=== PATIENT | female | born 1945 | race American Indian/Alaskan Native ===

== ENCOUNTER 2019-04-17 19:07 | Inpatient (IN) | payer MEDICARE ==
[2019-04-17] MEDS ORDERED: SODIUM CHLORIDE 0.9% 1000 ML 1,000 ML IV ONE (21:11)
[2019-04-17] MEDS ORDERED: ONDANSETRON 4 MG/2 ML INJ IV ONE (21:13)
--- NOTE | 2019-04-17 21:16 | Emergency Department Report ---
ED General Adult HPI - General Chief complaint: Altered Mental Status Stated complaint: FAILURE TO THRIVE Time Seen by Provider: 04/17/19 21:03 Source: family, EMS Mode of arrival: Stretcher Limitations: Other - History of Present Illness Initial comments: Patient is 73 years old female, hospice patient, DO NOT RESUSCITATE. Patient has advanced dementia. Patient is living in a personal long-term. Patient brought to the emergency room via EMS accompanied by her family. Family stated that patient has not been eating or drinking for the last few days with decreased mental status. Patient found to have a low-grade temperature and is slightly tachycardic. Patient is not communicating, most of the history is from patient family. - Related Data Allergies Allergy/AdvReac Type Severity Reaction Status Date / Time No Known Allergies Allergy Unverified 04/17/19 20:39 ED Review of Systems ROS: Stated complaint: FAILURE TO THRIVE Other details as noted in HPI Comment: Unobtainable due to pts medical conditions ED Past Medical Hx - Past Medical History Previous Medical History?: Yes Hx CVA: Yes Hx of Cancer: Yes (Breast Left) Hx Seizures: Yes Hx Dementia: Yes - Surgical History Past Surgical History?: Yes Additional Surgical History: Left masectomy, Brain stem surgery 2016 ED Physical Exam - General Limitations: Other General appearance: obtunded - Head Head exam: Present: atraumatic - Eye Eye exam: Present: normal appearance - ENT ENT exam: Present: mucous membranes dry - Neck Neck exam: Present: normal inspection. Absent: tenderness, meningismus - Respiratory Respiratory exam: Present: normal lung sounds bilaterally - Cardiovascular Cardiovascular Exam: Present: tachycardia - GI/Abdominal GI/Abdominal exam: Present: soft, normal bowel sounds. Absent: distended, tenderness, guarding, rebound, rigid - Neurological Exam Neurological exam: Present: altered - Skin Skin exam: Present: warm, dry ED Course Vital Signs 04/17/19 04/17/19 04/17/19 19:41 20:46 20:48 Temperature 99.1 F 100.9 F H Pulse Rate 110 H Respiratory 13 18 Rate Blood Pressure 114/66 [Right] O2 Sat by Pulse 99 100 Oximetry ED Medical Decision Making - Lab Data Result diagrams: 04/17/19 21:21 04/17/19 21:21 - Radiology Data Radiology results: report reviewed - Medical Decision Making Patient is 73 years old female, hospice patient, DO NOT RESUSCITATE. Patient has advanced dementia. Patient is living in a personal long-term. Patient brought to the emergency room via EMS accompanied by her family. Family stated that patient has not been eating or drinking for the last few days with decreased mental status. Patient found to have a low-grade temperature and is slightly tachycardic. Patient is not communicating, most of the history is from patient family. Labs reviewed and showed elevated lactic acid, UTI. Chest x-ray is unremarkable. Patient treated with normal saline, Zofran and Zosyn. I discussed the patient with Dr. Kaye Mcbride, she agreed to admit the patient to medical service for further management. Critical care attestation.: If time is entered above; I have spent that time in minutes in the direct care of this critically ill patient, excluding procedure time. ED Disposition Clinical Impression: Altered mental status, Dehydration, UTI (urinary tract infection) Disposition: OP ADMIT IP TO THIS HOSP Is pt being admited?: Yes Condition: Stable
--- NOTE | 2019-04-17 21:33 | XRay Report ---
CHEST 1 VIEW INDICATION: Altered Mental Status COMPARISON: None FINDINGS: Support devices: None Heart: Normal Lungs/Pleura: No acute pulmonary or pleural findings. IMPRESSION: 1. No acute disease. Signer Name: Facundo Hernandez MD Signed: 04/17/2019 9:28 PM Workstation Name: [id number]
[2019-04-17 21:45] LABS: Basophils % (Auto) 0.2 % (0.0-1.8); Hematocrit 42.3 % (30.3-42.9); Hemoglobin 13.3 gm/dl (10.1-14.3); Lymphocytes # (Auto) 1.2 K/mm3 (1.2-5.4); Mean Corpuscular HGB Conc 32 % (30-34); Mean Corpuscular Volume 91 fl (79-97); Monocytes # (Auto) 0.3 K/mm3 (0.0-0.8); Monocytes % (Auto) 4.1 % (0.0-7.3); Platelet Count 152 K/mm3 (140-440); Red Blood Count 4.66 M/mm3 (3.65-5.03); Red Cell Distribution Width 15.7 % (13.2-15.2)
[2019-04-17 22:07] LABS: Albumin 3.7 g/dL (3.9-5); BUN/Creatinine Ratio 26; Blood Urea Nitrogen 23 mg/dL (7-17); Calcium 9.4 mg/dL (8.4-10.2); Hemolysis Index 228
[2019-04-17 22:12] LABS: Bilirubin,Direct < 0.2 mg/dL (0-0.2)
[2019-04-17 22:16] LABS: Alanine Aminotransferase 47 units/L (7-56)
[2019-04-18 00:18] LABS: Bacteria,Urine 1+ /HPF (Negative); Bilirubin,Urine NEG (Negative); Blood,Urine SM (Negative); Color,Urine Yellow (Yellow); Mucus,Urine 1+ /HPF; Urobilinogen,Urine < 2.0 mg/dL (<2.0)
[2019-04-18] MEDS ORDERED: PIPERACILLIN/TAZOBACTAM 3.375 3.375 GM/50 ML BAG IV ONE (00:29)
[2019-04-18] MEDS ORDERED: ONDANSETRON 4 MG/2 ML INJ IV PRN (00:50)
[2019-04-18] MEDS ORDERED: DEXTROSE 50% IN WATER (25GM) 50 ML SYRINGE IV PRN (00:50)
[2019-04-18] MEDS ORDERED: ACETAMINOPHEN 325 MG TAB PO PRN (00:50)
--- NOTE | 2019-04-18 02:32 | History and Physical Report ---
<BRONWYN STRATTON - Last Filed: 04/18/19 02:27> History of Present Illness Date of examination: 04/18/19 Date of admission: 04/18/2019 Chief complaint: AMS, poor oral intake History of present illness: 73-year-old -A[place]ij[place] female who is on hospice currently residing at personal care with history of hypertension, diabetes, left breast cancer status post left mastectomy, seizure, dementia, and brain surgery who presents to [facility] ED via EMS with complaints of altered mental status x3 days and poor oral intake for the past couple of weeks. At baseline pt has history of dementia. She is unable to contribute to history. Pt's family (sisters, niece, and grandson) are present at bedside and have asssited with providing history. According to family, pt's son has POA. Son is traveling out of country and the grandson is acting on his behalf. Family requested pt be transferred to ED after 3 days of altered mentation and 2-3 weeks of decreased oral intake. Per family pt's intake has worsened over the past 3 days. They can't recall pt eating or having anything to drink. Past History Past Medical History: cancer (breast (Left breast)), diabetes, hypertension, stroke (right sided residual weakness), other (dementia) Past Surgical History: Other (Left masectomy, Brain stem surgery 2016) Social history: other (lives in personal fci and on hospice) Family history: no significant family history Medications and Allergies Allergies Allergy/AdvReac Type Severity Reaction Status Date / Time No Known Allergies Allergy Unverified 04/17/19 20:39 Active Meds: Active Medications Acetaminophen (Tylenol) 650 mg PO Q4H PRN PRN Reason: Pain MILD(1-3)/Fever >100.5/WHITLEY Acetaminophen (Tylenol) 650 mg PA Q4H PRN PRN Reason: Pain, Mild (1-3), fever>100.5 Dextrose (D50w (25gm) Syringe) 0 ml IV Q30MIN PRN; Protocol PRN Reason: Hypoglycemia Docusate Sodium (Colace) 100 mg PO BID JAMAAL Heparin Sodium (Porcine) (Heparin) 5,000 unit SUB-Q Q12HR JAMAAL Sodium Chloride (Nacl 0.9% 1000 Ml) 1,000 mls @ 75 mls/hr IV DIRECT JAMAAL Ceftriaxone Sodium (Rocephin/Ns 1 Gm/50 Ml) 1 gm in 50 mls @ 100 mls/hr IV Q24HR JAMAAL; Protocol Insulin Human Regular (Humulin R) 0 units SUB-Q Q6HR JAMAAL; Protocol Lorazepam (Ativan) 1 mg IV Q6H PRN PRN Reason: Seizures Ondansetron HCl (Zofran) 4 mg IV Q8H PRN PRN Reason: Nausea And Vomiting Sodium Chloride (Sodium Chloride Flush Syringe 10 Ml) 10 ml IV BID JAMAAL Sodium Chloride (Sodium Chloride Flush Syringe 10 Ml) 10 ml IV PRN PRN PRN Reason: LINE FLUSH Review of Systems ROS unobtainable: due to mental status Exam - Physical Exam Narrative exam: General appearance: Present: No acute distress, awake, unable to assess orientation, chronically ill appearing, older adult female - EENT Eyes: Present: PERRL, EOM intact ENT: hearing intact, - Neck Neck: Present: supple, normal ROM - Respiratory Respiratory effort: Non-labored Respiratory: bilateral: Diminished bases bilaterally - Cardiovascular Heart rate:98 (bpm) Rhythm:SR Heart Sounds: Present: S1, S2. - Extremities Extremities: no ischemia, pulses intact, IO left lowe leg - Peripheral Assessment Peripheral Pulses: within normal limits - Abdominal General gastrointestinal: soft, non-tender, normal bowel sounds, - Integumentary Integumentary: Present: warm, dry - Musculoskeletal Musculoskeletal: generalized weakness, right residual deficits from previous cva -Neurological Neurological: awake, unable to complete full neuro exam - Psychiatric Psychiatric: unable to assess - Constitutional Vitals: Temp Pulse Resp BP Pulse Ox 100.9 F H 110 H 18 114/66 100 04/17/19 20:46 04/17/19 19:41 04/17/19 20:48 04/17/19 19:41 04/17/19 20:48 Results - Labs CBC & Chem 7: 04/17/19 21:21 04/17/19 21:21 Labs: Laboratory Last Values WBC 7.6 K/mm3 (4.5-11.0) 04/17/19 21:21 RBC 4.66 M/mm3 (3.65-5.03) 04/17/19 21:21 Hgb 13.3 gm/dl (10.1-14.3) 04/17/19 21:21 Hct 42.3 % (30.3-42.9) 04/17/19 21:21 MCV 91 fl (79-97) 04/17/19 21:21 MCH 29 pg (28-32) 04/17/19 21:21 MCHC 32 % (30-34) 04/17/19 21:21 RDW 15.7 % (13.2-15.2) H 04/17/19 21:21 Plt Count 152 K/mm3 (140-440) 04/17/19 21:21 Lymph % (Auto) 16.0 % (13.4-35.0) 04/17/19 21:21 [place] % (Auto) 4.1 % (0.0-7.3) 04/17/19 21:21 Eos % (Auto) 0.0 % (0.0-4.3) 04/17/19 21:21 Baso % (Auto) 0.2 % (0.0-1.8) 04/17/19 21:21 Lymph # 1.2 K/mm3 (1.2-5.4) 04/17/19 21:21 [place] # 0.3 K/mm3 (0.0-0.8) 04/17/19 21:21 Eos # 0.0 K/mm3 (0.0-0.4) 04/17/19 21:21 Baso # 0.0 K/mm3 (0.0-0.1) 04/17/19 21:21 Seg Neutrophils % 79.7 % (40.0-70.0) H 04/17/19 21:21 Seg Neutrophils # 6.0 K/mm3 (1.8-7.7) 04/17/19 21:21 Sodium 143 mmol/L (137-145) 04/17/19 21:21 Potassium 5.2 mmol/L (3.6-5.0) H 04/17/19 21:21 Chloride 101.2 mmol/L (98-107) 04/17/19 21:21 Carbon Dioxide 20 mmol/L (22-30) L 04/17/19 21:21 Anion Gap 27 mmol/L 04/17/19 21:21 BUN 23 mg/dL (7-17) H 04/17/19 21:21 Creatinine 0.9 mg/dL (0.7-1.2) 04/17/19 21:21 Estimated GFR > 60 ml/min 04/17/19 21:21 BUN/Creatinine Ratio 26 % 04/17/19 21:21 Glucose 277 mg/dL (65-100) H 04/17/19 21:21 Hemoglobin A1c 7.0 % (4-6) H 04/18/19 01:05 Lactic Acid 3.40 mmol/L (0.7-2.0) H* 04/18/19 00:16 Calcium 9.4 mg/dL (8.4-10.2) 04/17/19 21:21 Total Bilirubin 0.40 mg/dL (0.1-1.2) 04/17/19 21:21 Direct Bilirubin < 0.2 mg/dL (0-0.2) 04/17/19 21:21 Indirect Bilirubin 0.2 mg/dL 04/17/19 21:21 AST 36 units/L (5-40) 04/17/19 21:21 ALT 47 units/L (7-56) 04/17/19 21:21 Alkaline Phosphatase 81 units/L (35-129) 04/17/19 21:21 Total Protein 7.8 g/dL (6.3-8.2) 04/17/19 21:21 Albumin 3.7 g/dL (3.9-5) L 04/17/19 21:21 Albumin/Globulin Ratio 0.9 % 04/17/19 21:21 Urine Color Yellow (Yellow) 04/17/19 23:07 Urine Turbidity Cloudy (Clear) 04/17/19 23:07 Urine pH 5.0 (5.0-7.0) 04/17/19 23:07 Ur Specific [place] 1.020 (1.003-1.030) 04/17/19 23:07 Urine Protein 30 mg/dl mg/dL (Negative) 04/17/19 23:07 Urine Glucose (UA) 150 mg/dL (Negative) 04/17/19 23:07 Urine Ketones 20 mg/dL (Negative) 04/17/19 23:07 Urine Blood Sm (Negative) 04/17/19 23:07 Urine Nitrite Neg (Negative) 04/17/19 23:07 Urine Bilirubin Neg (Negative) 04/17/19 23:07 Urine Urobilinogen < 2.0 mg/dL (<2.0) 04/17/19 23:07 Ur Leukocyte Esterase Lg (Negative) 04/17/19 23:07 Urine WBC (Auto) 67.0 /HPF (0.0-6.0) H 04/17/19 23:07 Urine RBC (Auto) 85.0 /HPF (0.0-6.0) 04/17/19 23:07 U Epithel Cells (Auto) 1.0 /HPF (0-13.0) 04/17/19 23:07 Urine Bacteria (Auto) 1+ /HPF (Negative) 04/17/19 23:07 Urine Mucus 1+ /HPF 04/17/19 23:07 Urine Yeast (Budding) 3+ /HPF 04/17/19 23:07 - Imaging and Cardiology Imaging and Cardiology: CXR: Impression: No acute disease. Assessment and Plan Assessment and plan: 73-year-old -A[place]ij[place] female who is on hospice currently residing at personal care with history of hypertension, diabetes, left breast cancer status post left mastectomy, seizure, dementia, and brain surgery who presents to [facility] ED via EMS with complaints of altered mental status x3 days and poor oral intake for the past couple of weeks. Family does not want pt to go back to current [facility] at discharge. A Case management consult has been placed for assistance with placement. There is some confusion as to pt's code status. Per family a document was signed during pervious admission at another facility. Both personal fci and Hospice was contacted regarding pt's code status, and they were unable to provide written documentation. Family has agreed that pt should remain full code until son who is POA returns and can make determination. Sepsis -HR >90 -AMS -Source of infection UTI -TMAX 100.9 -On IV Abx -Continue supportive Care UTI -Urine WBC 67, leukocyte -Urine culture pending -On IV Abx Acute Metabolic Encephalopathy -Likely due to UTI -Neuro checks -Continue to monitor Hyperkalemia -Potassium on admission 5.2 -Receiving IVF -Repeat potassium labs pending -Continue to monitor Lactic acidosis -Lactic acid on admission 3.2 -On IV Abx -On IVF -Continue to monitor DVT PPX -On Heparin Advance Directives: No VTE prophylaxis?: Chemical Plan of care discussed with patient/family: Yes <VERONN MORRIS - Last Filed: 04/18/19 05:50> History of Present Illness Date of admission: 04/18/19 00:50 Medications and Allergies Active Meds: Active Medications Acetaminophen (Tylenol) 650 mg PO Q4H PRN PRN Reason: Pain MILD(1-3)/Fever >100.5/WHITLEY Acetaminophen (Tylenol) 650 mg PA Q4H PRN PRN Reason: Pain, Mild (1-3), fever>100.5 Dextrose (D50w (25gm) Syringe) 0 ml IV Q30MIN PRN; Protocol PRN Reason: Hypoglycemia Docusate Sodium (Colace) 100 mg PO BID JAMAAL Heparin Sodium (Porcine) (Heparin) 5,000 unit SUB-Q Q12HR JAMAAL Sodium Chloride (Nacl 0.9% 1000 Ml) 1,000 mls @ 75 mls/hr IV DIRECT JAMAAL Ceftriaxone Sodium (Rocephin/Ns 1 Gm/50 Ml) 1 gm in 50 mls @ 100 mls/hr IV Q24HR JAMAAL; Protocol Insulin Human Regular (Humulin R) 0 units SUB-Q Q6HR JAMAAL; Protocol Last Admin: 04/18/19 03:58 Dose: 4 units Documented by: Lorazepam (Ativan) 1 mg IV Q6H PRN PRN Reason: Seizures Ondansetron HCl (Zofran) 4 mg IV Q8H PRN PRN Reason: Nausea And Vomiting Sodium Chloride (Sodium Chloride Flush Syringe 10 Ml) 10 ml IV BID [facility] Sodium Chloride (Sodium Chloride Flush Syringe 10 Ml) 10 ml IV PRN PRN PRN Reason: LINE FLUSH Exam - Constitutional Vitals: Temp Pulse Resp BP Pulse Ox 99.6 F 118 H 20 111/56 100 04/18/19 05:13 04/18/19 05:13 04/18/19 05:13 04/18/19 05:13 04/18/19 05:13 Results - Labs CBC & Chem 7: 04/17/19 21:21 04/17/19 21:21 Labs: Laboratory Last Values WBC 7.6 K/mm3 (4.5-11.0) 04/17/19 21:21 RBC 4.66 M/mm3 (3.65-5.03) 04/17/19 21:21 Hgb 13.3 gm/dl (10.1-14.3) 04/17/19 21:21 Hct 42.3 % (30.3-42.9) 04/17/19 21:21 MCV 91 fl (79-97) 04/17/19 21:21 MCH 29 pg (28-32) 04/17/19 21:21 MCHC 32 % (30-34) 04/17/19 21:21 RDW 15.7 % (13.2-15.2) H 04/17/19 21:21 Plt Count 152 K/mm3 (140-440) 04/17/19 21:21 Lymph % (Auto) 16.0 % (13.4-35.0) 04/17/19 21:21 Winston % (Auto) 4.1 % (0.0-7.3) 04/17/19 21:21 Eos % (Auto) 0.0 % (0.0-4.3) 04/17/19 21:21 Baso % (Auto) 0.2 % (0.0-1.8) 04/17/19 21:21 Lymph # 1.2 K/mm3 (1.2-5.4) 04/17/19 21:21 Winston # 0.3 K/mm3 (0.0-0.8) 04/17/19 21:21 Eos # 0.0 K/mm3 (0.0-0.4) 04/17/19 21:21 Baso # 0.0 K/mm3 (0.0-0.1) 04/17/19 21:21 Seg Neutrophils % 79.7 % (40.0-70.0) H 04/17/19 21:21 Seg Neutrophils # 6.0 K/mm3 (1.8-7.7) 04/17/19 21:21 Sodium 143 mmol/L (137-145) 04/17/19 21:21 Potassium 5.2 mmol/L (3.6-5.0) H 04/17/19 21:21 Chloride 101.2 mmol/L (98-107) 04/17/19 21:21 Carbon Dioxide 20 mmol/L (22-30) L 04/17/19 21:21 Anion Gap 27 mmol/L 04/17/19 21:21 BUN 23 mg/dL (7-17) H 04/17/19 21:21 Creatinine 0.9 mg/dL (0.7-1.2) 04/17/19 21:21 Estimated GFR > 60 ml/min 04/17/19 21:21 BUN/Creatinine Ratio 26 % 04/17/19 21:21 Glucose 277 mg/dL (65-100) H 04/17/19 21:21 POC Glucose 330 (70-105) H 04/18/19 03:44 Hemoglobin A1c 7.0 % (4-6) H 04/18/19 01:05 Lactic Acid 1.60 mmol/L (0.7-2.0) 04/18/19 03:24 Calcium 9.4 mg/dL (8.4-10.2) 04/17/19 21:21 Total Bilirubin 0.40 mg/dL (0.1-1.2) 04/17/19 21:21 Direct Bilirubin < 0.2 mg/dL (0-0.2) 04/17/19 21:21 Indirect Bilirubin 0.2 mg/dL 04/17/19 21:21 AST 36 units/L (5-40) 04/17/19 21:21 ALT 47 units/L (7-56) 04/17/19 21:21 Alkaline Phosphatase 81 units/L (35-129) 04/17/19 21:21 Total Protein 7.8 g/dL (6.3-8.2) 04/17/19 21:21 Albumin 3.7 g/dL (3.9-5) L 04/17/19 21:21 Albumin/Globulin Ratio 0.9 % 04/17/19 21:21 Urine Color Yellow (Yellow) 04/17/19 23:07 Urine Turbidity Cloudy (Clear) 04/17/19 23:07 Urine pH 5.0 (5.0-7.0) 04/17/19 23:07 Ur Specific Duarte 1.020 (1.003-1.030) 04/17/19 23:07 Urine Protein 30 mg/dl mg/dL (Negative) 04/17/19 23:07 Urine Glucose (UA) 150 mg/dL (Negative) 04/17/19 23:07 Urine Ketones 20 mg/dL (Negative) 04/17/19 23:07 Urine Blood Sm (Negative) 04/17/19 23:07 Urine Nitrite Neg (Negative) 04/17/19 23:07 Urine Bilirubin Neg (Negative) 04/17/19 23:07 Urine Urobilinogen < 2.0 mg/dL (<2.0) 04/17/19 23:07 Ur Leukocyte Esterase Lg (Negative) 04/17/19 23:07 Urine WBC (Auto) 67.0 /HPF (0.0-6.0) H 04/17/19 23:07 Urine RBC (Auto) 85.0 /HPF (0.0-6.0) 04/17/19 23:07 U Epithel Cells (Auto) 1.0 /HPF (0-13.0) 04/17/19 23:07 Urine Bacteria (Auto) 1+ /HPF (Negative) 04/17/19 23:07 Urine Mucus 1+ /HPF 04/17/19 23:07 Urine Yeast (Budding) 3+ /HPF 04/17/19 23:07 Assessment and Plan Assessment and plan: patient seen and examined, agree with plan as stated above
[2019-04-18] MEDS ORDERED: INSULIN REGULAR, HUMAN 100 UNITS/1 ML ONE (03:47)
[2019-04-18] MEDS: INSULIN REGULAR, HUMAN 100 UNITS/1 ML SUB-Q SCH ×5 (03:58→23:53)
[2019-04-18] MEDS: SODIUM CHLORIDE 0.9% 1000 ML 1,000 ML IV SCH ×2 (07:47→22:29)
[2019-04-18] MEDS: DOCUSATE SODIUM 100 MG CAP PO SCH ×2 (09:09→22:30)
[2019-04-18] MEDS: HEPARIN 5,000 UNIT/1 ML VIAL SUB-Q SCH ×2 (09:12→22:29)
[2019-04-18] MEDS: cefTRIAXone/NS 1 GM/50 ML 1 GM/50 ML BAG IV SCH (09:47)
--- NOTE | 2019-04-18 12:23 | Event Note ---
Date: 04/18/19 Patient admitted with AMS, sepsis, UTI. I have seen and examined her. Continue current management.
[2019-04-18] MEDS: LORazepam 2 MG/ML VIAL IV PRN (18:40)
[2019-04-19] MEDS: ACETAMINOPHEN 650 MG RECT SUPP PR PRN ×2 (00:48→16:50)
[2019-04-19] MEDS: INSULIN REGULAR, HUMAN 100 UNITS/1 ML SUB-Q SCH ×3 (07:20→18:01)
[2019-04-19] MEDS: LORazepam 2 MG/ML VIAL IV PRN ×3 (08:07→13:31)
[2019-04-19 08:36] LABS: BUN/Creatinine Ratio 35; Blood Urea Nitrogen 21 mg/dL (7-17); Calcium 9.2 mg/dL (8.4-10.2); Hemolysis Index 18
[2019-04-19] MEDS ORDERED: SODIUM CHLORIDE 0.9% 1000 ML IV SOLN ONE (08:36)
[2019-04-19] MEDS: levETIRAcetam 1,500 MG in DEXTROSE 5% IN WATER 100 ML IV SCH ×2 (09:03→21:57)
[2019-04-19] MEDS ORDERED: LORazepam 2 MG/ML VIAL IV PRN (09:10)
--- NOTE | 2019-04-19 09:21 | Progress Note ---
Hospitalist Physical - Constitutional Vitals: Temp Pulse Resp BP Pulse Ox 100.7 F H 76 20 184/57 83 L 04/19/19 07:12 04/19/19 07:12 04/19/19 07:12 04/19/19 07:12 04/19/19 07:12 Results - Labs CBC & Chem 7: 04/17/19 21:21 04/19/19 07:47 Labs: Laboratory Last Values WBC 7.6 K/mm3 (4.5-11.0) 04/17/19 21:21 RBC 4.66 M/mm3 (3.65-5.03) 04/17/19 21:21 Hgb 13.3 gm/dl (10.1-14.3) 04/17/19 21:21 Hct 42.3 % (30.3-42.9) 04/17/19 21:21 MCV 91 fl (79-97) 04/17/19 21:21 MCH 29 pg (28-32) 04/17/19 21:21 MCHC 32 % (30-34) 04/17/19 21:21 RDW 15.7 % (13.2-15.2) H 04/17/19 21:21 Plt Count 152 K/mm3 (140-440) 04/17/19 21:21 Lymph % (Auto) 16.0 % (13.4-35.0) 04/17/19 21:21 [place] % (Auto) 4.1 % (0.0-7.3) 04/17/19 21:21 Eos % (Auto) 0.0 % (0.0-4.3) 04/17/19 21:21 Baso % (Auto) 0.2 % (0.0-1.8) 04/17/19 21:21 Lymph # 1.2 K/mm3 (1.2-5.4) 04/17/19 21:21 [place] # 0.3 K/mm3 (0.0-0.8) 04/17/19 21:21 Eos # 0.0 K/mm3 (0.0-0.4) 04/17/19 21:21 Baso # 0.0 K/mm3 (0.0-0.1) 04/17/19 21:21 Seg Neutrophils % 79.7 % (40.0-70.0) H 04/17/19 21:21 Seg Neutrophils # 6.0 K/mm3 (1.8-7.7) 04/17/19 21:21 Sodium 156 mmol/L (137-145) H D 04/19/19 07:47 Potassium 3.7 mmol/L (3.6-5.0) 04/19/19 07:47 Chloride 113.9 mmol/L (98-107) H 04/19/19 07:47 Carbon Dioxide 24 mmol/L (22-30) 04/19/19 07:47 Anion Gap 22 mmol/L 04/19/19 07:47 BUN 21 mg/dL (7-17) H 04/19/19 07:47 Creatinine 0.6 mg/dL (0.7-1.2) L 04/19/19 07:47 Estimated GFR > 60 ml/min 04/19/19 07:47 BUN/Creatinine Ratio 35 % 04/19/19 07:47 Glucose 190 mg/dL (65-100) H 04/19/19 07:47 POC Glucose 218 (70-105) H 04/19/19 06:50 Hemoglobin A1c 7.0 % (4-6) H 04/18/19 01:05 Lactic Acid 1.60 mmol/L (0.7-2.0) 04/18/19 03:24 Calcium 9.2 mg/dL (8.4-10.2) 04/19/19 07:47 Total Bilirubin 0.40 mg/dL (0.1-1.2) 04/17/19 21:21 Direct Bilirubin < 0.2 mg/dL (0-0.2) 04/17/19 21:21 Indirect Bilirubin 0.2 mg/dL 04/17/19 21:21 AST 36 units/L (5-40) 04/17/19 21:21 ALT 47 units/L (7-56) 04/17/19 21:21 Alkaline Phosphatase 81 units/L (35-129) 04/17/19 21:21 Total Protein 7.8 g/dL (6.3-8.2) 04/17/19 21:21 Albumin 3.7 g/dL (3.9-5) L 04/17/19 21:21 Albumin/Globulin Ratio 0.9 % 04/17/19 21:21 Urine Color Yellow (Yellow) 04/17/19 23:07 Urine Turbidity Cloudy (Clear) 04/17/19 23:07 Urine pH 5.0 (5.0-7.0) 04/17/19 23:07 Ur Specific [place] 1.020 (1.003-1.030) 04/17/19 23:07 Urine Protein 30 mg/dl mg/dL (Negative) 04/17/19 23:07 Urine Glucose (UA) 150 mg/dL (Negative) 04/17/19 23:07 Urine Ketones 20 mg/dL (Negative) 04/17/19 23:07 Urine Blood Sm (Negative) 04/17/19 23:07 Urine Nitrite Neg (Negative) 04/17/19 23:07 Urine Bilirubin Neg (Negative) 04/17/19 23:07 Urine Urobilinogen < 2.0 mg/dL (<2.0) 04/17/19 23:07 Ur Leukocyte Esterase Lg (Negative) 04/17/19 23:07 Urine WBC (Auto) 67.0 /HPF (0.0-6.0) H 04/17/19 23:07 Urine RBC (Auto) 85.0 /HPF (0.0-6.0) 04/17/19 23:07 U Epithel Cells (Auto) 1.0 /HPF (0-13.0) 04/17/19 23:07 Urine Bacteria (Auto) 1+ /HPF (Negative) 04/17/19 23:07 Urine Mucus 1+ /HPF 04/17/19 23:07 Urine Yeast (Budding) 3+ /HPF 04/17/19 23:07 Active Medications - Current Medications Current Medications: Generic Name Dose Route Start Last Admin Trade Name Freq PRN Reason Stop Dose Admin Acetaminophen 650 mg 04/18/19 00:50 Tylenol PO Q4H PRN Pain MILD(1-3)/Fever >100.5/WHITLEY Acetaminophen 650 mg 04/18/19 02:24 04/19/19 00:48 Tylenol LA 650 mg Q4H PRN Administration Pain, Mild (1-3), fever>100.5 Dextrose 0 ml 04/18/19 00:50 D50w (25gm) Syringe IV Q30MIN PRN Hypoglycemia Protocol Docusate Sodium 100 mg 04/18/19 10:00 04/18/19 22:30 Colace PO 100 mg BID JAMAAL Administration Heparin Sodium (Porcine) 5,000 unit 04/18/19 10:00 04/18/19 22:29 Heparin SUB-Q 5,000 unit Q12HR JAMAAL Administration Sodium Chloride 1,000 mls @ 75 mls/hr 04/18/19 01:00 04/18/19 22:29 Nacl 0.9% 1000 Ml IV 75 mls/hr DIRECT JAMAAL Administration Ceftriaxone Sodium 1 gm in 50 mls @ 100 mls/hr 04/18/19 10:00 04/18/19 09:47 Rocephin/Ns 1 Gm/50 Ml IV 100 mls/hr Q24HR JAMAAL Administration Protocol Levetiracetam 1,500 mg/ 115 mls @ 400 mls/hr 04/19/19 10:00 04/19/19 09:03 Dextrose IV 400 mls/hr Q12HR JAMAAL Administration Insulin Human Regular 0 units 04/18/19 06:00 04/19/19 07:20 Humulin R SUB-Q 2 units Q6HR JAMAAL Administration Protocol Lorazepam 1 mg 04/19/19 09:00 04/19/19 09:15 Ativan IV 1 mg Q1H PRN Administration Seizures Ondansetron HCl 4 mg 04/18/19 00:50 Zofran IV Q8H PRN Nausea And Vomiting Sodium Chloride 10 ml 04/18/19 10:00 04/18/19 22:30 Sodium Chloride Flush Syringe 10 Ml IV 10 ml BID JAMAAL Administration Sodium Chloride 10 ml 04/18/19 00:50 Sodium Chloride Flush Syringe 10 Ml IV PRN PRN LINE FLUSH Nutrition/Malnutrition Assess - Dietary Evaluation Nutrition/Malnutrition Findings: Nutrition Notes Start: 04/18/19 11:34 Freq: Status: Active Protocol: Document 04/18/19 11:34 (Rec: 04/18/19 12:03 MK [email or web address]) Co-Sign 04/18/19 11:34 LM Nutrition Notes Need for Assessment generated from: exhaust emissions inspector,MST Initial or Follow up Assessment Current Diagnosis Diabetes,Hypertension Other Pertinent Diagnosis Acute encephalaphy, UTI, seizure, AMS, non-verbal, hx of breast cancer Current Diet NPO Labs/Tests POC BG 330 Pertinent Medications Reviewed Height 5 ft 2 in Weight 55.79 kg Usual Body Weight 78.5 kg [place] Body Weight (kg) 50.00 BMI 22.4 Intake Prior to Admission Poor Weight change and time frame 29% wt loss in 1-2 mo. Weight Status Underweight Subjective/Other Information RN consult for MST and skin risk. No Alex score reported but pt has skin tear. Pt family reports poor appetite for around 2 months with 50 pound wt loss. Burn Absent Trauma Absent Current % PO Negligible Minimum of two criteria Yes Energy Intake (severe) < or equal to 50% Estimated Energy Requirement > or equal to 5 days Interpretation of Weight Loss (severe) >5% in 1 month #3 Nutrition Diagnosis Increased nutrient needs ( specify in comment below) Comments: Protein Etiology wound healing As Evidenced by Signs and Symptoms skin tear with breakdown on sacrum #1 Nutrition Diagnosis Malnutrition Etiology poor appetitie secondary to advanced age and chronic illness As Evidenced by Signs and Symptoms 29% wt loss in 2 mo and < 50% EER >5 days Is patient on ventilator? No Is Patient Ambulatory and/or Out of Bed No REE-([place] [facility]-confined to bed) 1219.812 Kcal/Kg value to use for calculation 28 Approximate Energy Requirements Using 1562 kcal/Kg Calculation Used for Recommendations Kcal/kg Additional Notes Pro: 67-84 g (1.2-1.5g/kg) Fluid: 1ml/kcal Nutrition Intervention Change Diet Order: Advance diet when medically able Goal #1 Meet at least 75% of energy and protein needs once diet advancement Goal #2 Wound healing Anticipated Discharge Needs: Consistent carb/cardiac Follow-Up By: 04/20/19 Additional Comments FU for diet advancement and intakes
[2019-04-19] MEDS: cefTRIAXone/NS 1 GM/50 ML 1 GM/50 ML BAG IV SCH (09:31)
[2019-04-19] MEDS: HEPARIN 5,000 UNIT/1 ML VIAL SUB-Q SCH ×2 (09:31→21:58)
[2019-04-19] MEDS: DOCUSATE SODIUM 100 MG CAP PO SCH ×2 (09:32→21:58)
[2019-04-19] MEDS ORDERED: levETIRAcetam 1,000 MG in DEXTROSE 5% IN WATER 100 ML IV SCH (10:00)
--- NOTE | 2019-04-19 11:10 | Cat Scan Report ---
CT head/brain wo con INDICATION / CLINICAL INFORMATION: 73 years Female; altered mental status, seizures. TECHNIQUE: Routine CT head without contrast. All CT scans at this location are performed using CT dos e reduction for ALARA by means of automated exposure control. COMPARISON: None. FINDINGS: BRAIN / INTRACRANIAL CONTENTS: Craniotomy site is seen in the left occipital parietal region. There i s underlying encephalomalacia in the posterior left cerebral hemisphere, extending towards the left p arietal temporal region. Prior trauma might be consideration and clinical correlation is recommended. Otherwise, no acute hemorrhage, mass effect, midline shift, hydrocephalus, or acute, large territori al infarct. No chronic infarct or atrophy appreciated. No significant white matter abnormality. CRANIOCERVICAL JUNCTION: No significant abnormality. ORBITS: No significant abnormality of visualized orbits. SINUSES / MASTOIDS: No significant abnormality the visualized paranasal sinuses or mastoid air cells. ADDITIONAL FINDINGS: None. IMPRESSION: 1. No focal mass, hemorrhage, hydrocephalus, or acute, large territorial infarct. Signer Name: Homero Salvador MD, III Signed: 04/19/2019 11:06 AM Workstation Name: [id number]
[2019-04-19] MEDS ORDERED: ADENOSINE 6 MG/2 ML INJ IV STA (12:17)
--- NOTE | 2019-04-19 12:54 | Progress Note ---
Assessment and Plan Assessment and plan: 73-year-old -[place] female who is on hospice currently residing at personal care with history of hypertension, diabetes, left breast cancer status post left mastectomy, seizure, dementia, and brain surgery who presents to [facility] ED via EMS with complaints of altered mental status x3 days and poor oral intake for the past couple of weeks. Family does not want pt to go back to current personal retirement at discharge. A Case management consult was placed for assistance with placement. There was some confusion on admission as to pt's code status. Per family a document was signed during pervious admission at another facility. Both personal retirement and Hospice was contacted regarding pt's code status, and they were unable to provide written documentation. Family agreed that pt should remain full code until son who is POA returns and can make determination. Rapid atrial fibrillation Started on Amiodarone drip after Amiodarone push consult cardiology Breakthrough seizures Keppra iv Ativan iv prn Sepsis -HR >90 -AMS -Source of infection UTI -On IV Abx -Continue supportive Care UTI -Urine WBC 67, leukocyte -Urine culture pending -On IV Abx Acute Metabolic Encephalopathy -Likely due to UTI -Neuro checks -Continue to monitor Dementia Hyperkalemia -Potassium on admission 5.2 -Receiving IVF -Repeat potassium labs pending -Continue to monitor Lactic acidosis -Lactic acid on admission 3.2 -On IV Abx -On IVF -Continue to monitor History of left breast cancer s/p mastectomy DVT PPX -On Heparin DNR I spoke to son, Darron Hart on phone. Son says patient has a DNR status and wants her to be same, DNR status He is also requesting inpatient hospice I discussed with case management Poor prognosis History Interval history: Called by Nurse for seizures, then tachycardia of 220 Patient minimally responsive, cannot give history Hospitalist Physical - Physical exam Narrative exam: Gen: In acute distress, HEENT: Normocephalic, atraumatic Neck: supple, no JVD Heart: S1 and S2 irreg,irreg, no murmurs, rubs or gallop Lungs: clear to auscultation bilaterally, no crackles Abd: soft, NT, non distended, normal BS Ext: No edema, no clubbing, no cyanosis Neuro: Obtunded, does not follow commands - Constitutional Vitals: Temp Pulse Resp BP Pulse Ox 100.7 F H 139 H 20 184/57 100 04/19/19 07:12 04/19/19 10:00 04/19/19 07:12 04/19/19 07:12 04/19/19 09:01 Results - Labs CBC & Chem 7: 04/20/19 05:10 04/20/19 05:10 Labs: Laboratory Last Values WBC 7.6 K/mm3 (4.5-11.0) 04/17/19 21:21 RBC 4.66 M/mm3 (3.65-5.03) 04/17/19 21:21 Hgb 13.3 gm/dl (10.1-14.3) 04/17/19 21:21 Hct 42.3 % (30.3-42.9) 04/17/19 21:21 MCV 91 fl (79-97) 04/17/19 21:21 MCH 29 pg (28-32) 04/17/19 21:21 MCHC 32 % (30-34) 04/17/19 21:21 RDW 15.7 % (13.2-15.2) H 04/17/19 21:21 Plt Count 152 K/mm3 (140-440) 04/17/19 21:21 Lymph % (Auto) 16.0 % (13.4-35.0) 04/17/19 21:21 Harper % (Auto) 4.1 % (0.0-7.3) 04/17/19 21:21 Eos % (Auto) 0.0 % (0.0-4.3) 04/17/19 21:21 Baso % (Auto) 0.2 % (0.0-1.8) 04/17/19 21:21 Lymph # 1.2 K/mm3 (1.2-5.4) 04/17/19 21:21 Harper # 0.3 K/mm3 (0.0-0.8) 04/17/19 21:21 Eos # 0.0 K/mm3 (0.0-0.4) 04/17/19 21:21 Baso # 0.0 K/mm3 (0.0-0.1) 04/17/19 21:21 Seg Neutrophils % 79.7 % (40.0-70.0) H 04/17/19 21:21 Seg Neutrophils # 6.0 K/mm3 (1.8-7.7) 04/17/19 21:21 POC ABG pH 7.352 (7.35-7.45) 04/19/19 12:28 POC ABG pCO2 58.6 (35-45) H 04/19/19 12:28 POC ABG pO2 66 (80-105) L 04/19/19 12:28 POC ABG HCO3 32.5 (22-26 mml/L) 04/19/19 12:28 POC ABG Total CO2 34 (23-27mmol/L) 04/19/19 12:28 POC ABG O2 Sat 91 04/19/19 12:28 POC ABG Base Excess 7 ((-2) - (+3)mmol/L) 04/19/19 12:28 FiO2 2 % 04/19/19 12:28 Sodium 156 mmol/L (137-145) H D 04/19/19 07:47 Potassium 3.7 mmol/L (3.6-5.0) 04/19/19 07:47 Chloride 113.9 mmol/L (98-107) H 04/19/19 07:47 Carbon Dioxide 24 mmol/L (22-30) 04/19/19 07:47 Anion Gap 22 mmol/L 04/19/19 07:47 BUN 21 mg/dL (7-17) H 04/19/19 07:47 Creatinine 0.6 mg/dL (0.7-1.2) L 04/19/19 07:47 Estimated GFR > 60 ml/min 04/19/19 07:47 BUN/Creatinine Ratio 35 % 04/19/19 07:47 Glucose 190 mg/dL (65-100) H 04/19/19 07:47 POC Glucose 274 (70-105) H 04/19/19 13:00 Hemoglobin A1c 7.0 % (4-6) H 04/18/19 01:05 Lactic Acid 1.60 mmol/L (0.7-2.0) 04/18/19 03:24 Calcium 9.2 mg/dL (8.4-10.2) 04/19/19 07:47 Total Bilirubin 0.40 mg/dL (0.1-1.2) 04/17/19 21:21 Direct Bilirubin < 0.2 mg/dL (0-0.2) 04/17/19 21:21 Indirect Bilirubin 0.2 mg/dL 04/17/19 21:21 AST 36 units/L (5-40) 04/17/19 21:21 ALT 47 units/L (7-56) 04/17/19 21:21 Alkaline Phosphatase 81 units/L (35-129) 04/17/19 21:21 Total Protein 7.8 g/dL (6.3-8.2) 04/17/19 21:21 Albumin 3.7 g/dL (3.9-5) L 04/17/19 21:21 Albumin/Globulin Ratio 0.9 % 04/17/19 21:21 Urine Color Yellow (Yellow) 04/17/19 23:07 Urine Turbidity Cloudy (Clear) 04/17/19 23:07 Urine pH 5.0 (5.0-7.0) 04/17/19 23:07 Ur Specific [place] 1.020 (1.003-1.030) 04/17/19 23:07 Urine Protein 30 mg/dl mg/dL (Negative) 04/17/19 23:07 Urine Glucose (UA) 150 mg/dL (Negative) 04/17/19 23:07 Urine Ketones 20 mg/dL (Negative) 04/17/19 23:07 Urine Blood Sm (Negative) 04/17/19 23:07 Urine Nitrite Neg (Negative) 04/17/19 23:07 Urine Bilirubin Neg (Negative) 04/17/19 23:07 Urine Urobilinogen < 2.0 mg/dL (<2.0) 04/17/19 23:07 Ur Leukocyte Esterase Lg (Negative) 04/17/19 23:07 Urine WBC (Auto) 67.0 /HPF (0.0-6.0) H 04/17/19 23:07 Urine RBC (Auto) 85.0 /HPF (0.0-6.0) 04/17/19 23:07 U Epithel Cells (Auto) 1.0 /HPF (0-13.0) 04/17/19 23:07 Urine Bacteria (Auto) 1+ /HPF (Negative) 04/17/19 23:07 Urine Mucus 1+ /HPF 04/17/19 23:07 Urine Yeast (Budding) 3+ /HPF 04/17/19 23:07 Active Medications - Current Medications Current Medications: Generic Name Dose Route Start Last Admin Trade Name Freq PRN Reason Stop Dose Admin Acetaminophen 650 mg 04/18/19 00:50 Tylenol PO Q4H PRN Pain MILD(1-3)/Fever >100.5/WHITLEY Acetaminophen 650 mg 04/18/19 02:24 04/19/19 00:48 Tylenol ID 650 mg Q4H PRN Administration Pain, Mild (1-3), fever>100.5 Dextrose 0 ml 04/18/19 00:50 D50w (25gm) Syringe IV Q30MIN PRN Hypoglycemia Protocol Docusate Sodium 100 mg 04/18/19 10:00 04/19/19 09:32 Colace PO Not Given BID JAMAAL Heparin Sodium (Porcine) 5,000 unit 04/18/19 10:00 04/19/19 09:31 Heparin SUB-Q 5,000 unit Q12HR JAMAAL Administration Ceftriaxone Sodium 1 gm in 50 mls @ 100 mls/hr 04/18/19 10:00 04/19/19 09:31 Rocephin/Ns 1 Gm/50 Ml IV 100 mls/hr Q24HR JAMAAL Administration Protocol Levetiracetam 1,500 mg/ 115 mls @ 400 mls/hr 04/19/19 10:00 04/19/19 09:03 Dextrose IV 400 mls/hr Q12HR JAMAAL Administration Dextrose 1,000 mls @ 75 mls/hr 04/19/19 10:00 D5w IV DIRECT JAMAAL Amiodarone HCl 900 mg/ 500 mls @ 33.333 mls/hr 04/19/19 13:00 Dextrose IV DIRECT JAMAAL Protocol 1 MG/MIN Insulin Human Regular 0 units 04/18/19 06:00 04/19/19 07:20 Humulin R SUB-Q 2 units Q6HR JAMAAL Administration Protocol Lorazepam 1 mg 04/19/19 09:00 04/19/19 09:15 Ativan IV 1 mg Q1H PRN Administration Seizures Ondansetron HCl 4 mg 04/18/19 00:50 Zofran IV Q8H PRN Nausea And Vomiting Sodium Chloride 10 ml 04/18/19 10:00 04/19/19 09:32 Sodium Chloride Flush Syringe 10 Ml IV 10 ml BID JAMAAL Administration Sodium Chloride 10 ml 04/18/19 00:50 Sodium Chloride Flush Syringe 10 Ml IV PRN PRN LINE FLUSH Nutrition/Malnutrition Assess - Dietary Evaluation Nutrition/Malnutrition Findings: Nutrition Notes Start: 04/18/19 11:34 Freq: Status: Active Protocol: Document 04/18/19 11:34 DAFNE (Rec: 04/18/19 12:03 MK [email or web address]) Co-Sign 04/18/19 11:34 LM Nutrition Notes Need for Assessment generated from: forensics analyst,MST Initial or Follow up Assessment Current Diagnosis Diabetes,Hypertension Other Pertinent Diagnosis Acute encephalaphy, UTI, seizure, AMS, non-verbal, hx of breast cancer Current Diet NPO Labs/Tests POC BG 330 Pertinent Medications Reviewed Height 5 ft 2 in Weight 55.79 kg Usual Body Weight 78.5 kg [place] Body Weight (kg) 50.00 BMI 22.4 Intake Prior to Admission Poor Weight change and time frame 29% wt loss in 1-2 mo. Weight Status Underweight Subjective/Other Information RN consult for MST and skin risk. No Alex score reported but pt has skin tear. Pt family reports poor appetite for around 2 months with 50 pound wt loss. Burn Absent Trauma Absent Current % PO Negligible Minimum of two criteria Yes Energy Intake (severe) < or equal to 50% Estimated Energy Requirement > or equal to 5 days Interpretation of Weight Loss (severe) >5% in 1 month #3 Nutrition Diagnosis Increased nutrient needs ( specify in comment below) Comments: Protein Etiology wound healing As Evidenced by Signs and Symptoms skin tear with breakdown on sacrum #1 Nutrition Diagnosis Malnutrition Etiology poor appetitie secondary to advanced age and chronic illness As Evidenced by Signs and Symptoms 29% wt loss in 2 mo and < 50% EER >5 days Is patient on ventilator? No Is Patient Ambulatory and/or Out of Bed No REE-([facility]-confined to bed) 1219.812 Kcal/Kg value to use for calculation 28 Approximate Energy Requirements Using 1562 kcal/Kg Calculation Used for Recommendations Kcal/kg Additional Notes Pro: 67-84 g (1.2-1.5g/kg) Fluid: 1ml/kcal Nutrition Intervention Change Diet Order: Advance diet when medically able Goal #1 Meet at least 75% of energy and protein needs once diet advancement Goal #2 Wound healing Anticipated Discharge Needs: Consistent carb/cardiac Follow-Up By: 04/20/19 Additional Comments FU for diet advancement and intakes
--- NOTE | 2019-04-19 13:56 | Consultation ---
History of Present Illness Consult date: 04/19/19 Consult reason: atrial fibrillation History of present illness: 73-year old woman with multiple medical problems, on hospice who was brought in with reports of altered mental status, fever and poor oral intake, admitted with sepsis thought secondary to UTI. Head CT scan is negative for acute intracranial abnormalities. Today, a rapid response was called when patient was noted tachycardic on telemetry. A stat ECG shows rapid atrial fibrillation. She reverted to sinus rhythm following administration of intravenous amiodarone. Cardiology co nsultation has been requested. Past History Past Medical History: cancer (breast (Left breast)), diabetes, hypertension, stroke (right sided residual weakness), other (dementia) Past Surgical History: Other (Left masectomy, Brain stem surgery 2016) Social history: other (lives in personal alf and on hospice) Family history: no significant family history Medications and Allergies Allergies Allergy/AdvReac Type Severity Reaction Status Date / Time No Known Allergies Allergy Unverified 04/17/19 20:39 Home Medications Medication Instructions Recorded Confirmed Last Taken Type Aspirin [Adult Aspirin] 81 mg PO DAILY 04/18/19 04/18/19 Unknown History Insulin Detemir [Levemir VIAL] 10 unit SQ QHS 04/18/19 04/18/19 Unknown History LORazepam [Ativan] 0.5 mg PO DAILY PRN 04/18/19 04/18/19 Unknown History lamoTRIgine 1 tab PO DAILY 04/18/19 04/18/19 Unknown History levETIRAcetam [Keppra TAB] 1,500 mg PO BID 04/18/19 04/18/19 Unknown History Active Meds: Active Medications Acetaminophen (Tylenol) 650 mg PO Q4H PRN PRN Reason: Pain MILD(1-3)/Fever >100.5/WHITLEY Acetaminophen (Tylenol) 650 mg SD Q4H PRN PRN Reason: Pain, Mild (1-3), fever>100.5 Last Admin: 04/19/19 00:48 Dose: 650 mg Documented by: Dextrose (D50w (25gm) Syringe) 0 ml IV Q30MIN PRN; Protocol PRN Reason: Hypoglycemia Docusate Sodium (Colace) 100 mg PO BID JAMAAL Last Admin: 04/19/19 09:32 Dose: Not Given Documented by: Heparin Sodium (Porcine) (Heparin) 5,000 unit SUB-Q Q12HR JAMAAL Last Admin: 04/19/19 09:31 Dose: 5,000 unit Documented by: Ceftriaxone Sodium (Rocephin/Ns 1 Gm/50 Ml) 1 gm in 50 mls @ 100 mls/hr IV Q24HR JAMAAL; Protocol Last Admin: 04/19/19 09:31 Dose: 100 mls/hr Documented by: Levetiracetam 1,500 mg/ (Dextrose) 115 mls @ 400 mls/hr IV Q12HR JAMAAL Last Admin: 04/19/19 09:03 Dose: 400 mls/hr Documented by: Dextrose (D5w) 1,000 mls @ 75 mls/hr IV DIRECT JAMAAL Amiodarone HCl 900 mg/ (Dextrose) 500 mls @ 33.333 mls/hr IV DIRECT JAMAAL; Pr otocol Insulin Human Regular (Humulin R) 0 units SUB-Q Q6HR JAMAAL; Protocol Last Admin: 04/19/19 12:58 Dose: 3 units Documented by: Lorazepam (Ativan) 1 mg IV Q1H PRN PRN Reason: Seizures Last Admin: 04/19/19 13:31 Dose: 1 mg Documented by: Ondansetron HCl (Zofran) 4 mg IV Q8H PRN PRN Reason: Nausea And Vomiting Sodium Chloride (Sodium Chloride Flush Syringe 10 Ml) 10 ml IV BID [facility] Last Admin: 04/19/19 09:32 Dose: 10 ml Documented by: Sodium Chloride (Sodium Chloride Flush Syringe 10 Ml) 10 ml IV PRN PRN PRN Reason: LINE FLUSH Physical Examination Vital Signs Temp Pulse Resp BP Pulse Ox 99.1 F 110 H 13 114/66 99 04/17/19 19:41 04/17/19 19:41 04/17/19 19:41 04/17/19 19:41 04/17/19 19:41 General appearance: mild distress Cardiac: Positive: Reg Rate and Rhythm Results 04/17/19 21:21 04/19/19 07:47 Comprehensive Metabolic Panel 04/19/19 Range/Units 07:47 Sodium 156 H D (137-145) mmol/L Potassium 3.7 (3.6-5.0) mmol/L Chloride 113.9 H (98-107) mmol/L Carbon Dioxide 24 (22-30) mmol/L BUN 21 H (7-17) mg/dL Creatinine 0.6 L (0.7-1.2) mg/dL Glucose 190 H (65-100) mg/dL Calcium 9.2 (8.4-10.2) mg/dL Assessment and Plan Atrial fibrillation spontaneously reverted to sinus rhythm following IV amiodarone AMS Sepsis thought secondary to UTI Transfer to telemetry. Continue intravenous amiodarone. Check magnesium and potassium. Keep mag >2 and potassium >4.
[2019-04-19] MEDS: DEXTROSE 5% IN WATER 1,000 ML IV SCH (14:28)
[2019-04-19 15:31] LABS: BUN/Creatinine Ratio 26; Blood Urea Nitrogen 18 mg/dL (7-17); Hemolysis Index 14
[2019-04-19] MEDS ORDERED: MAGNESIUM SULFATE 2 GM/50 ML BAG IV ONE (16:44)
[2019-04-19] MEDS ORDERED: POTASSIUM PHOSPHATE 45 MMOL in SODIUM CHLORIDE 0.9% 500 ML 500 ML IV ONE (16:44)
[2019-04-19] MEDS: AMIODARONE 900 MG in DEXTROSE 5% IN WATER 482 ML IV SCH (20:00)
[2019-04-20] MEDS: INSULIN REGULAR, HUMAN 100 UNITS/1 ML SUB-Q SCH ×5 (00:27→21:15)
[2019-04-20] MEDS: ACETAMINOPHEN 650 MG RECT SUPP PR PRN ×2 (05:33→21:40)
[2019-04-20 05:50] LABS: Hematocrit 37.8 % (30.3-42.9); Hemoglobin 12.3 gm/dl (10.1-14.3); Mean Corpuscular HGB Conc 32 % (30-34); Mean Corpuscular Volume 88 fl (79-97); Red Blood Count 4.28 M/mm3 (3.65-5.03); Red Cell Distribution Width 14.9 % (13.2-15.2)
[2019-04-20 05:51] LABS: Platelet Count 97 K/mm3 (140-440)
[2019-04-20 06:14] LABS: BUN/Creatinine Ratio 20; Blood Urea Nitrogen 12 mg/dL (7-17); Calcium 8.7 mg/dL (8.4-10.2); Hemolysis Index 21
[2019-04-20] MEDS: AMIODARONE 900 MG in DEXTROSE 5% IN WATER 482 ML IV SCH (06:27)
[2019-04-20] MEDS: LORazepam 2 MG/ML VIAL IV PRN (06:27)
[2019-04-20] MEDS: POTASSIUM CHLORIDE 10 MEQ 10 MEQ/100 ML BAG IV SCH ×2 (10:43→12:29)
[2019-04-20] MEDS: levETIRAcetam 1,500 MG in DEXTROSE 5% IN WATER 100 ML IV SCH ×2 (10:48→22:17)
[2019-04-20] MEDS: HEPARIN 5,000 UNIT/1 ML VIAL SUB-Q SCH ×2 (10:48→21:42)
[2019-04-20] MEDS: cefTRIAXone/NS 1 GM/50 ML 1 GM/50 ML BAG IV SCH (10:48)
[2019-04-20] MEDS: DOCUSATE SODIUM 100 MG CAP PO SCH ×2 (10:48→21:42)
[2019-04-20] MEDS: DEXTROSE 5% IN WATER 1,000 ML IV SCH (10:51)
[2019-04-20] MEDS ORDERED: DIGOXIN 0.5 MG/2 ML INJ IV STA ×2 (11:22→12:40)
--- NOTE | 2019-04-20 11:52 | Progress Note ---
Assessment and Plan Paroxysmal Atrial fibrillation on IV amiodarone AMS Sepsis thought secondary to UTI AND/DNR Plan: We will add intravenous Digoxin in addition to intravenous amiodarone for suppression of atrial fibrillation. Subjective Date of service: 04/20/19 Interval history: Rapid afib on telemetry this morning. Objective Vital Signs Temp Pulse Pulse Resp BP BP Pulse Ox 04/20/19 08:50 100.9 F H 163 H 24 110/66 100 04/20/19 05:13 102.3 F H 59 L 24 169/85 89 04/20/19 04:36 121 H 04/20/19 00:42 20 04/20/19 00:11 99.9 F H 71 24 164/75 96 04/19/19 22:00 125 H 04/19/19 20:14 97.5 F L 94 H 26 H 156/85 86 04/19/19 15:11 100.0 F H 122 H 26 H 132/110 96 04/19/19 13:00 128 H 24 04/19/19 12:40 94 - Physical Examination General: No Apparent Distress Cardiac: Positive: irregularly irregular - Labs and Meds CBC 04/20/19 Range/Units 05:10 WBC 7.2 (4.5-11.0) K/mm3 RBC 4.28 (3.65-5.03) M/mm3 Hgb 12.3 (10.1-14.3) gm/dl Hct 37.8 (30.3-42.9) % Plt Count 97 L (140-440) K/mm3 Comprehensive Metabolic Panel 04/19/19 04/20/19 Range/Units 14:51 05:10 Sodium 154 H 148 H (137-145) mmol/L Potassium 3.3 L 3.3 L (3.6-5.0) mmol/L Chloride 111.0 H 103.0 (98-107) mmol/L Carbon Dioxide 25 30 (22-30) mmol/L BUN 18 H 12 (7-17) mg/dL Creatinine 0.7 0.6 L (0.7-1.2) mg/dL Glucose 234 H 268 H (65-100) mg/dL Calcium 9.0 8.7 (8.4-10.2) mg/dL
[2019-04-20] MEDS ORDERED: DIGOXIN 0.5 MG/2 ML INJ IV ONE ×3 (12:23→16:40)
--- NOTE | 2019-04-20 17:01 | Progress Note ---
Assessment and Plan Assessment and plan: 73-year-old -Japanese female who is on hospice currently residing at personal care with history of hypertension, diabetes, left breast cancer status post left mastectomy, seizure, dementia, and brain surgery who presents to [facility] ED via EMS with complaints of altered mental status x3 days and poor oral intake for the past couple of weeks. Family does not want pt to go back to current [facility] at discharge. A Case management consult was placed for assistance with placement. There was some confusion on admission as to pt's code status. Per family a document was signed during pervious admission at another facility. Both personal penitentiary and Hospice was contacted regarding pt's code status, and they were unable to provide written documentation. Family agreed that pt should remain full code until son who is POA returns and can make determination. Rapid atrial fibrillation Started on Amiodarone drip after Amiodarone push consulted cardiology Breakthrough seizures Keppra iv Ativan iv prn Sepsis -HR >90 -AMS -Source of infection UTI -On IV Abx -Continue supportive Care UTI -Urine WBC 67, leukocyte -Urine culture pending -On IV Abx Acute Metabolic Encephalopathy -Likely due to UTI -Neuro checks -Continue to monitor Dementia Hyperkalemia -Potassium on admission 5.2 -Receiving IVF -Repeat potassium labs pending -Continue to monitor Lactic acidosis -Lactic acid on admission 3.2 -On IV Abx -On IVF -Continue to monitor History of left breast cancer s/p mastectomy DVT PPX -On Heparin DNR I spoke to son, Darron Hart on phone. Son says patient has a DNR status and wants her to be same, DNR status He is also requesting inpatient hospice I discussed with case management Poor prognosis History Interval history: Called by Nurse 04/19 for seizures, then tachycardia of 220 Patient minimally responsive, cannot give history Hospitalist Physical - Physical exam Narrative exam: Gen: Not in acute distress, HEENT: Normocephalic, atraumatic Neck: supple, no JVD Heart: S1 and S2 reg, no murmurs, rubs or gallop Lungs: clear to auscultation bilaterally, no crackles Abd: soft, NT, non distended, normal BS Ext: No edema, no clubbing, no cyanosis Neuro: Obtunded, does not follow commands - Constitutional Vitals: Temp Pulse Resp BP Pulse Ox 99.3 F 163 H 18 154/77 100 04/20/19 11:47 04/20/19 08:50 04/20/19 11:47 04/20/19 11:47 04/20/19 08:50 Results - Labs CBC & Chem 7: 04/20/19 05:10 04/20/19 05:10 Labs: Laboratory Last Values WBC 7.2 K/mm3 (4.5-11.0) 04/20/19 05:10 RBC 4.28 M/mm3 (3.65-5.03) 04/20/19 05:10 Hgb 12.3 gm/dl (10.1-14.3) 04/20/19 05:10 Hct 37.8 % (30.3-42.9) 04/20/19 05:10 MCV 88 fl (79-97) 04/20/19 05:10 MCH 29 pg (28-32) 04/20/19 05:10 MCHC 32 % (30-34) 04/20/19 05:10 RDW 14.9 % (13.2-15.2) 04/20/19 05:10 Plt Count 97 K/mm3 (140-440) L 04/20/19 05:10 Lymph % (Auto) 16.0 % (13.4-35.0) 04/17/19 21:21 [place] % (Auto) 4.1 % (0.0-7.3) 04/17/19 21:21 Eos % (Auto) 0.0 % (0.0-4.3) 04/17/19 21:21 Baso % (Auto) 0.2 % (0.0-1.8) 04/17/19 21:21 Lymph # 1.2 K/mm3 (1.2-5.4) 04/17/19 21:21 [place] # 0.3 K/mm3 (0.0-0.8) 04/17/19 21:21 Eos # 0.0 K/mm3 (0.0-0.4) 04/17/19 21:21 Baso # 0.0 K/mm3 (0.0-0.1) 04/17/19 21:21 Seg Neutrophils % 79.7 % (40.0-70.0) H 04/17/19 21:21 Seg Neutrophils # 6.0 K/mm3 (1.8-7.7) 04/17/19 21:21 POC ABG pH 7.352 (7.35-7.45) 04/19/19 12:28 POC ABG pCO2 58.6 (35-45) H 04/19/19 12:28 POC ABG pO2 66 (80-105) L 04/19/19 12:28 POC ABG HCO3 32.5 (22-26 mml/L) 04/19/19 12:28 POC ABG Total CO2 34 (23-27mmol/L) 04/19/19 12:28 POC ABG O2 Sat 91 04/19/19 12:28 POC ABG Base Excess 7 ((-2) - (+3)mmol/L) 04/19/19 12:28 FiO2 2 % 04/19/19 12:28 Sodium 148 mmol/L (137-145) H 04/20/19 05:10 Potassium 3.3 mmol/L (3.6-5.0) L 04/20/19 05:10 Chloride 103.0 mmol/L (98-107) 04/20/19 05:10 Carbon Dioxide 30 mmol/L (22-30) 04/20/19 05:10 Anion Gap 18 mmol/L 04/20/19 05:10 BUN 12 mg/dL (7-17) 04/20/19 05:10 Creatinine 0.6 mg/dL (0.7-1.2) L 04/20/19 05:10 Estimated GFR > 60 ml/min 04/20/19 05:10 BUN/Creatinine Ratio 20 % 04/20/19 05:10 Glucose 268 mg/dL (65-100) H 04/20/19 05:10 POC Glucose 263 (70-105) H 04/20/19 12:41 Hemoglobin A1c 7.0 % (4-6) H 04/18/19 01:05 Lactic Acid 1.60 mmol/L (0.7-2.0) 04/18/19 03:24 Calcium 8.7 mg/dL (8.4-10.2) 04/20/19 05:10 Phosphorus 0.90 mg/dL (2.5-4.5) L* 04/19/19 14:51 Magnesium 1.70 mg/dL (1.7-2.3) 04/19/19 14:51 Total Bilirubin 0.40 mg/dL (0.1-1.2) 04/17/19 21:21 Direct Bilirubin < 0.2 mg/dL (0-0.2) 04/17/19 21:21 Indirect Bilirubin 0.2 mg/dL 04/17/19 21:21 AST 36 units/L (5-40) 04/17/19 21:21 ALT 47 units/L (7-56) 04/17/19 21:21 Alkaline Phosphatase 81 units/L (35-129) 04/17/19 21:21 Total Protein 7.8 g/dL (6.3-8.2) 04/17/19 21:21 Albumin 3.7 g/dL (3.9-5) L 04/17/19 21:21 Albumin/Globulin Ratio 0.9 % 04/17/19 21:21 Urine Color Yellow (Yellow) 04/17/19 23:07 Urine Turbidity Cloudy (Clear) 04/17/19 23:07 Urine pH 5.0 (5.0-7.0) 04/17/19 23:07 Ur Specific [place] 1.020 (1.003-1.030) 04/17/19 23:07 Urine Protein 30 mg/dl mg/dL (Negative) 04/17/19 23:07 Urine Glucose (UA) 150 mg/dL (Negative) 04/17/19 23:07 Urine Ketones 20 mg/dL (Negative) 04/17/19 23:07 Urine Blood Sm (Negative) 04/17/19 23:07 Urine Nitrite Neg (Negative) 04/17/19 23:07 Urine Bilirubin Neg (Negative) 04/17/19 23:07 Urine Urobilinogen < 2.0 mg/dL (<2.0) 04/17/19 23:07 Ur Leukocyte Esterase Lg (Negative) 04/17/19 23:07 Urine WBC (Auto) 67.0 /HPF (0.0-6.0) H 04/17/19 23:07 Urine RBC (Auto) 85.0 /HPF (0.0-6.0) 04/17/19 23:07 U Epithel Cells (Auto) 1.0 /HPF (0-13.0) 04/17/19 23:07 Urine Bacteria (Auto) 1+ /HPF (Negative) 04/17/19 23:07 Urine Mucus 1+ /HPF 04/17/19 23:07 Urine Yeast (Budding) 3+ /HPF 04/17/19 23:07 Active Medications - Current Medications Current Medications: Generic Name Dose Route Start Last Admin Trade Name Freq PRN Reason Stop Dose Admin Acetaminophen 650 mg 04/18/19 00:50 Tylenol PO Q4H PRN Pain MILD(1-3)/Fever >100.5/WHITLEY Acetaminophen 650 mg 04/18/19 02:24 04/20/19 05:33 Tylenol SD 650 mg Q4H PRN Administration Pain, Mild (1-3), fever>100.5 Dextrose 0 ml 04/18/19 00:50 D50w (25gm) Syringe IV Q30MIN PRN Hypoglycemia Protocol Docusate Sodium 100 mg 04/18/19 10:00 04/20/19 10:48 Colace PO Not Given BID JAMAAL Heparin Sodium (Porcine) 5,000 unit 04/18/19 10:00 04/20/19 10:48 Heparin SUB-Q 5,000 unit Q12HR JAMAAL Administration Ceftriaxone Sodium 1 gm in 50 mls @ 100 mls/hr 04/18/19 10:00 04/20/19 10:48 Rocephin/Ns 1 Gm/50 Ml IV 100 mls/hr Q24HR JAMAAL Administration Protocol Levetiracetam 1,500 mg/ 115 mls @ 400 mls/hr 04/19/19 10:00 04/20/19 10:48 Dextrose IV 400 mls/hr Q12HR JAMAAL Administration Dextrose 1,000 mls @ 42 mls/hr 04/19/19 10:00 04/20/19 10:51 D5w IV 75 mls/hr DIRECT JAMAAL Administration Insulin Human Regular 0 units 04/18/19 06:00 04/20/19 13:11 Humulin R SUB-Q 3 units Q6HR JAMAAL Administration Protocol Lorazepam 1 mg 04/19/19 09:00 04/20/19 06:27 Ativan IV 1 mg Q1H PRN Administration Seizures Ondansetron HCl 4 mg 04/18/19 00:50 Zofran IV Q8H PRN Nausea And Vomiting Sodium Chloride 10 ml 04/18/19 10:00 04/20/19 10:43 Sodium Chloride Flush Syringe 10 Ml IV 10 ml BID JAMAAL Administration Sodium Chloride 10 ml 04/18/19 00:50 Sodium Chloride Flush Syringe 10 Ml IV PRN PRN LINE FLUSH Nutrition/Malnutrition Assess - Dietary Evaluation Nutrition/Malnutrition Findings: Nutrition Notes Start: 04/18/19 11:34 Freq: Status: Active Protocol: Document 04/20/19 12:31 PS (Rec: 04/20/19 12:42 PS [id number]) Co-Sign 04/20/19 12:31 LP Nutrition Notes Initial or Follow up Reassessment Current Diagnosis Diabetes,Hypertension Other Pertinent Diagnosis Acute encephalaphy, UTI, seizure, AMS, non-verbal, hx of breast cancer Current Diet NPO Labs/Tests POC Glu 280 Cr 0.6 Na 148 K 3.3 Pertinent Medications Heparin Humulin Height 5 ft 2 in Weight 54.8 kg Usual Body Weight 78.5 kg [place] Body Weight (kg) 50.00 BMI 22.1 Intake Prior to Admission Poor Weight change and time frame 29% wt loss in 1-2 mo. Weight Status Underweight Subjective/Other Information F/U for diet advancement/ intakes. NPO was not on door during visit. Spoke to nurse about diet. Per RN, the pt is going to in pt hospice care but staying till family finds location. Burn Absent Trauma Absent Current % PO Negligible Minimum of two criteria Yes Energy Intake (severe) < or equal to 50% Estimated Energy Requirement > or equal to 5 days Interpretation of Weight Loss (severe) >5% in 1 month #3 Nutrition Diagnosis Increased nutrient needs ( specify in comment below) Diagnosis Progress(for reassessment Continues documentation) #1 Nutrition Diagnosis Malnutrition Diagnosis Progress(for reassessment Continues documentation) Is patient on ventilator? No Is Patient Ambulatory and/or Out of Bed No REE-([facility]-confined to bed) 1207.944 Kcal/Kg value to use for calculation 28 Approximate Energy Requirements Using 1534 kcal/Kg Calculation Used for Recommendations Kcal/kg Additional Notes Pro: 67-84 g (1.2-1.5g/kg) Fluid: 1ml/kcal Nutrition Intervention Change Diet Order: Advance diet when medically able Goal #1 Meet at least 75% of energy and protein needs once diet advancement Goal #2 Wound healing Anticipated Discharge Needs: Consistent carb/cardiac Follow-Up By: 04/21/19 Additional Comments F/U for POC
--- NOTE | 2019-04-20 18:19 | Discharge Summary ---
Providers - Providers Date of Admission: 04/18/19 00:50 Date of discharge: 04/20/19 Attending physician: SUSAN SETHI 04/18/19 02:21 Consult to Case Management [CONS] Routine Services Needed at Discharge: Other Notified:: FEDE Additional Physician Instructions: inpatient hospice or [facility] 04/19/19 12:40 Consult to Physician [CONS] Urgent Comment: Consulting Provider: SUSAN RICHTER Physician Instructions: Reason For Exam: Rapid afib Hospitalization Condition: Poor Hospital course: 73-year-old -[place] female who is on hospice currently residing at personal care with history of hypertension, diabetes, left breast cancer status post left mastectomy, seizure, dementia, and brain surgery who presents to [facility] ED via EMS with complaints of altered mental status x3 days and poor oral intake for the past couple of weeks. Family does not want pt to go back to current personal senior care at discharge. Both personal senior care and Hospice was contacted regarding pt's code status, and they were unable to provide written documentation. Family agreed that pt should remain full code until son who is POA returns and can make determination. Rapid atrial fibrillation. Treated with Amiodarone drip after Amiodarone push. Cardiology was following Breakthrough seizures Keppra iv Ativan iv prn Sepsis due to UTI. Treated with Zosyn UTI Acute Toxic Metabolic Encephalopathy Dementia Hyperkalemia History of left breast cancer s/p mastectomy DNR I spoke to son, Susan Hart on phone. Son says patient has a DNR status and wants her to be same, DNR status He is also requesting inpatient hospice I discussed with case management, hospice arranged and she was discharged to hospice on 04/19/19 Total time spent on discharge , 38 mins Disposition: [id number] ([facility]) - Discharge Diagnoses (1) Sepsis Status: Acute (2) Toxic metabolic encephalopathy Status: Acute (3) Hyperkalemia Status: Acute (4) History of breast cancer in female Status: Acute (5) Dehydration Status: Acute (6) UTI (urinary tract infection) Status: Acute (7) Breakthrough seizure Status: Acute Core Measure Documentation - Palliative Care Palliative Care/ Comfort Measures: Not Applicable - Core Measures Any of the following diagnoses?: none Exam - Constitutional Vitals: Temp Pulse Resp BP Pulse Ox 99.3 F 163 H 18 154/77 100 04/20/19 11:47 04/20/19 08:50 04/20/19 11:47 04/20/19 11:47 04/20/19 08:50 Plan Activity: advance as tolerated Special Instructions: other (Continue Keppra 1500mg iv Q 12h) Plan of Treatment: 1.Discharge to inpatient hospice to care of [facility]. 2.Continue Keppra 1500mg iv Q12h Follow up with: JOSUE ABREU [Other] - 7 Days
[2019-04-20] MEDS ORDERED: POTASSIUM PHOSPHATE 45 MMOL in SODIUM CHLORIDE 0.9% 500 ML 500 ML IV ONE (21:05)
[2019-04-21] MEDS ORDERED: dilTIAZem/D5W 100 MG/100 ML BAG IV SCH (01:00)
[2019-04-21] MEDS: INSULIN REGULAR, HUMAN 100 UNITS/1 ML SUB-Q SCH ×3 (01:16→12:16)
[2019-04-21] MEDS: cefTRIAXone/NS 1 GM/50 ML 1 GM/50 ML BAG IV SCH (09:47)
[2019-04-21] MEDS: DOCUSATE SODIUM 100 MG CAP PO SCH (11:23)
[2019-04-21] MEDS: levETIRAcetam 1,500 MG in DEXTROSE 5% IN WATER 100 ML IV SCH (11:27)
[2019-04-21 11:39] LABS: Calcium 7.7 mg/dL (8.4-10.2)
[2019-04-21] MEDS: HEPARIN 5,000 UNIT/1 ML VIAL SUB-Q SCH (11:53)
[2019-04-21] MEDS: DEXTROSE 5% IN WATER 1,000 ML IV SCH (11:53)
[2019-04-21 12:28] VITALS: BP 99/49
--- NOTE | 2019-04-21 14:40 | Event Note ---
Date: 04/21/19 Patient going to inpatient hospice today. I have seen and examined her.
== END 2019-04-21 16:30 | disposition hospice, inpatient (51) | DRG 871 ==
LOC: ED 19:07 → 2B-ACE 04-18 00:50 → 4A 04-19 13:45
PROVIDERS: ADMIT Internal Medicine; ATTEND Internal Medicine
PROC: 4A033R1 Measurement of Arterial Saturation, Peripheral, Percutaneous Approach (ICD-10-PCS; principal; 2019-04-19)
DX: A41.9 Sepsis, unspecified organism (principal); G93.41 Metabolic encephalopathy; N39.0 Urinary tract infection, site not specified; R56.9 Unspecified convulsions; Z66 Do not resuscitate; E87.5 Hyperkalemia; E11.9 Type 2 diabetes mellitus without complications; I10 Essential (primary) hypertension; F03.90 Unspecified dementia, unspecified severity, without behavioral disturbance, psychotic disturbance, mood disturbance, and anxiety; I48.0 Paroxysmal atrial fibrillation; E86.0 Dehydration; Z85.3 Personal history of malignant neoplasm of breast; Z86.73 Personal history of transient ischemic attack (TIA), and cerebral infarction without residual deficits; Z90.12 Acquired absence of left breast and nipple; Z79.82 Long term (current) use of aspirin; Z79.899 Other long term (current) drug therapy
CPT/HCPCS: 36415; 36600; 70450; 71045; 80048; 80076; 81001; 82140; 82803; 82962; 83036; 83735; 84100; 84132; 85025; 85027; 87040; 87086; 93005; 93010; 94760; G0378; J0153; J0282; J0696; J1160; J1644; J1815; J1953; J2060; J2405; J2543; J3475; J3480; J7030; J7040; J7060; J7070